=== PATIENT | female | born 1970 | race Caucasian/White ===

== ENCOUNTER → 2017-04-29 | Outpatient (CLI) | payer MEDICAID | END | disposition home or self-care (01) | LOC: CFH 08:52 | PROVIDERS: ATTEND Family Medicine | DX: Z12.31 Encounter for screening mammogram for malignant neoplasm of breast (principal) | CPT/HCPCS: G0202 ==

== ENCOUNTER → 2017-05-04 | Outpatient (CLI) | payer MEDICAID | END | disposition home or self-care (01) | LOC: CFH 10:04 | PROVIDERS: ATTEND Nurse Practitioner Family | DX: M51.36 Other intervertebral disc degeneration, lumbar region (principal); M16.11 Unilateral primary osteoarthritis, right hip; M76.891 Other specified enthesopathies of right lower limb, excluding foot; S73.101A Unspecified sprain of right hip, initial encounter; M47.896 Other spondylosis, lumbar region; M25.751 Osteophyte, right hip; M25.451 Effusion, right hip; X58.XXXA Exposure to other specified factors, initial encounter; Y93.89 Activity, other specified; Y92.89 Other specified places as the place of occurrence of the external cause; Y99.8 Other external cause status ==

== ENCOUNTER → 2019-09-25 | Outpatient (CLI) | payer OTHER | END | disposition home or self-care (01) | LOC: CFH 15:31 | PROVIDERS: ATTEND Nurse Practitioner Family | DX: Z12.31 Encounter for screening mammogram for malignant neoplasm of breast (principal) | CPT/HCPCS: 77067 ==

== ENCOUNTER → 2019-10-12 | Outpatient (CLI) | payer OTHER | END | disposition home or self-care (01) | LOC: CFH 13:09 | PROVIDERS: ATTEND Nurse Practitioner Family | DX: N64.89 Other specified disorders of breast (principal) | CPT/HCPCS: 77065; G0279 ==

== ENCOUNTER 2020-05-12 06:33 | Emergency (ER) | payer OTHER ==
[~2020-05-12] VITALS: Ht 175.3 cm; Wt 113.5 kg
[2020-05-12] MEDS ORDERED: ACETAMINOPHEN 325 MG TABLET ONE (06:54)
[2020-05-12] MEDS ORDERED: LIDOCAINE-MPF 1%, 5ML ONE (06:54)
[2020-05-12] MEDS ORDERED: ACETAMINOPHEN 325 MG TABLET PO ONE (07:00)
[2020-05-12] MEDS ORDERED: LIDOCAINE-MPF 1%, 5ML INFIL ONE (07:00)
[2020-05-12] MEDS ORDERED: NEOSPORIN OINT. PKT 1 PACKET ONE (07:03)
--- NOTE | 2020-05-12 08:13 | NUR ---
ERP AT BEDSIDE, SUTURING. PT IN NAD SITTING ON BED, NAD. CALL LIGHT WITHIN REACH, NO NEEDS AT THIS TIME.
[2020-05-12] MEDS ORDERED: KETOROLAC 60 MG/2 ML ONE (08:18)
[2020-05-12] MEDS ORDERED: HYDROcodone/APAP 5/325 TABLET ONE (08:18)
[2020-05-12] MEDS ORDERED: HYDROcodone/APAP 5/325 TABLET PO ONE (08:30)
[2020-05-12] MEDS ORDERED: KETOROLAC 30 MG/1 ML IM ONE (08:30)
[2020-05-12 09:14] VITALS: BP 130/82
--- NOTE | 2020-05-12 09:15 | NUR ---
Patient given discharge instructions and they have confirmed that they understand the instructions. Patient ambulatory with steady gait.
== END 2020-05-12 09:16 | disposition home or self-care (01) ==
LOC: ED 06:52
DX: S06.0X0A Concussion without loss of consciousness, initial encounter (principal); S01.112A Laceration without foreign body of left eyelid and periocular area, initial encounter; S01.111A Laceration without foreign body of right eyelid and periocular area, initial encounter; S80.212A Abrasion, left knee, initial encounter; F17.200 Nicotine dependence, unspecified, uncomplicated; W18.30XA Fall on same level, unspecified, initial encounter; Y93.89 Activity, other specified; Y92.410 Unspecified street and highway as the place of occurrence of the external cause; Y99.8 Other external cause status
CPT/HCPCS: 12051; 70450; 96372; 99284; J1885